=== PATIENT | female | born 1955 | race Caucasian/White ===

== ENCOUNTER 2020-11-06 01:38 | Inpatient (IN) ==
[2020-11-06] MEDS ORDERED: Naloxone 0.4 MG/ML INJ IVP PRN (01:50)
[2020-11-06] MEDS ORDERED: Ondansetron 4 MG/2 ML VIAL IVP PRN (01:50)
[2020-11-06] MEDS ORDERED: 0.9 % Sodium Chloride 1,000 ML IVC SCH (02:00)
[2020-11-06] MEDS ORDERED: D5% in Water 1,000 ML IVC PRN (02:26)
[2020-11-06] MEDS ORDERED: *HR* Dextrose 50 % in Water (Vial) 50 ML VIAL IVP PRN (02:26)
[2020-11-06] MEDS ORDERED: Dextrose Gel 15 GM/37.5 ML TUBE PO PRN ×2 (02:26)
[2020-11-06 02:52] LABS: INR 1.2; Prothrombin Time 14.1 Seconds (9.4-12.1)
[2020-11-06 03:15] LABS: Bilirubin,Urine Negative (Negative); Blood,Urine Negative (Negative); Clarity,Urine Clear (Clear); Color,Urine Light-Yellow (Yellow); Glucose,Urine (UA) Normal (Normal); Ketones,Urine Negative (Negative); Leukocyte Esterase,Urine Negative (Negative); Nitrite,Urine Negative (Negative); Protein,Urine Negative (Neg-Trace); Specific Gravity,Urine 1.015 (1.010-1.025); Urobilinogen,Urine Normal (Normal)
[2020-11-06 03:22] LABS: Alanine Aminotransferase 93 Units/L (7-52); Albumin 2.9 g/dL (3.5-5.7); Albumin/Globulin Ratio 1.2 (1.1-2.2); Alkaline Phosphatase 99 Units/L (34-104); Aspartate Amino Transferase 68 Units/L (13-39); BUN/Creatinine Ratio 38 (6-26); Bilirubin,Total 0.8 mg/dL (0.3-1.0); Blood Urea Nitrogen 25 mg/dL (8-23); Calcium 7.8 mg/dL (8.6-10.3); Carbon Dioxide 20 mEq/L (23-29); Chloride 111 mEq/L (98-107); Chol/HDL Ratio 2.4 (0-4.9); Cholesterol 111 mg/dL (< 200); Globulin 2.4 g/dL (2.4-3.5); Glucose 91 mg/dL (70-105); HDL Cholesterol 46 mg/dL (40-59); LDL Cholesterol,Calculated 43 mg/dL (< 100); Magnesium 1.3 mg/dL (1.6-2.6); Osmolality,Calculated 300 (280-300); Potassium 3.7 mEq/L (3.5-5.1); Sodium 143 mEq/L (136-145); Thyroid Stimulating Hormone 2.064 mcIU/mL (0.340-5.600); Total Protein 5.3 g/dL (6.4-8.9); Triglycerides 108 mg/dL (< 150); eGFR For African Americans > 60 (> 60); eGFR For Non-African Americans > 60 (> 60)
[2020-11-06 03:35] LABS: Basophils % 0.5 %; Eosinophils # 0.1 K/mcL (0.0-0.6); Eosinophils % 1.1 %; Hematocrit 28.3 % (35.3-44.9); Hemoglobin 8.6 g/dL (11.5-15.4); Immature Granulocytes % 0.2 % (0-4); Lymphocytes # 1.6 K/mcL (0.6-4.6); Lymphocytes % 27.9 %; Mean Corpuscular HGB Conc 30.4 g/dL (31.6-35.5); Mean Corpuscular Hemoglobin 36.8 pg (28.0-33.3); Mean Corpuscular Volume 120.9 fL (83.0-100.0); Mean Platelet Volume 9.2 fL (9.4-12.4); Monocytes # 0.6 K/mcL (0.0-1.3); Monocytes % 10.5 %; Neutrophils # 3.4 K/mcL (1.6-8.9); Platelet Count 141 K/mcL (140-400); Red Blood Count 2.34 M/mcL (3.82-4.97); Red Cell Distribution Width 15.2 % (11.5-14.5); Segmented Neutrophils % 59.8 %; White Blood Count 5.6 K/mcL (4.3-11.1)
[2020-11-06 04:24] LABS: Anisocytosis 1+ (Not Present); Platelet Estimate Normal (Normal)
[2020-11-06] MEDS: Insulin LISPRO 300 UNITS/3 ML VIAL SUBQ SCH ×3 (07:42→16:55)
[2020-11-06 08:54] LABS: Estimated Average Glucose 62 mg/dl; Hemoglobin A1C 3.8 %
[2020-11-06] MEDS ORDERED: Ketorolac 15 MG/ML VIAL IVP ONE (11:06)
[2020-11-06] MEDS ORDERED: Clindamycin 900 MG/50 ML 900 MG/50 ML IV.SOLN IVPB ONE (17:04)
[2020-11-06] MEDS ORDERED: *HR* Midazolam HCl 2 MG/2 ML VIAL ONE (17:09)
[2020-11-06] MEDS ORDERED: Lidocaine HCL 4 ML Topical Solution (Laryng-O-Jet Kit Sterile Pak) TP ONE (17:09)
[2020-11-06] MEDS ORDERED: Ondansetron 4 MG/2 ML VIAL ONE (17:09)
[2020-11-06] MEDS ORDERED: *HR* FentaNYL (PF) 100 MCG/2 ML VIAL ONE ×2 (17:09→18:08)
[2020-11-06] MEDS ORDERED: Lidocaine -MPF 2% 2 ML VIAL ONE (17:09)
[2020-11-06] MEDS ORDERED: *HR* Propofol 200 MG/20 ML VIAL IVP ONE (17:09)
[2020-11-06] MEDS ORDERED: Sugammadex Sodium 200 MG/2 ML VIAL IV ONE (18:12)
[2020-11-06] MEDS ORDERED: Acetaminophen IV 1,000 MG/100 ML BAG IVPB ONE (18:57)
[2020-11-06] MEDS ORDERED: *HR* OxyCODONE Immed Rel 5 MG TABLET PO PRN (18:57)
[2020-11-06] MEDS ORDERED: Famotidine 20 MG/2 ML VIAL IVP ONE (18:57)
[2020-11-06] MEDS ORDERED: *HR* HYDROmorphone 2 MG TABLET PO PRN (18:57)
[2020-11-06] MEDS ORDERED: *HR* Labetalol 20 MG/4 ML SYRINGE IVP PRN (18:57)
[2020-11-06] MEDS: *HR* HYDROmorphone (PF) 1 MG/ML SYRINGE IVP PRN ×2 (19:04→19:13)
[2020-11-06] MEDS: *HR* Heparin 5,000 UNIT/ML VIAL SQ SCH (20:28)
[2020-11-06] MEDS: Gabapentin 400 MG CAPSULE PO SCH (22:51)
[2020-11-07] MEDS: Clindamycin 900 MG/50 ML 900 MG/50 ML IV.SOLN IVPB SCH ×2 (00:12→09:45)
[2020-11-07] MEDS: *HR* Heparin 5,000 UNIT/ML VIAL SQ SCH ×2 (05:28→17:20)
[2020-11-07] MEDS ORDERED: Acetaminophen IV 1,000 MG/100 ML BAG IVPB ONE (05:57)
[2020-11-07 06:31] LABS: Basophils % 0.2 %; Hematocrit 27.3 % (35.3-44.9); Hemoglobin 8.5 g/dL (11.5-15.4); Immature Granulocytes % 0.2 % (0-4); Lymphocytes # 0.8 K/mcL (0.6-4.6); Lymphocytes % 18.1 %; Mean Corpuscular HGB Conc 31.1 g/dL (31.6-35.5); Mean Corpuscular Hemoglobin 37.6 pg (28.0-33.3); Mean Corpuscular Volume 120.8 fL (83.0-100.0); Mean Platelet Volume 9.7 fL (9.4-12.4); Monocytes # 0.4 K/mcL (0.0-1.3); Monocytes % 8.6 %; Neutrophils # 3.2 K/mcL (1.6-8.9); Platelet Count 163 K/mcL (140-400); Red Blood Count 2.26 M/mcL (3.82-4.97); Red Cell Distribution Width 14.3 % (11.5-14.5); Segmented Neutrophils % 72.9 %; White Blood Count 4.4 K/mcL (4.3-11.1)
[2020-11-07 06:50] LABS: BUN/Creatinine Ratio 31 (6-26); Blood Urea Nitrogen 16 mg/dL (8-23); Calcium 7.3 mg/dL (8.6-10.3); Carbon Dioxide 20 mEq/L (23-29); Chloride 113 mEq/L (98-107); Glucose 217 mg/dL (70-105); Magnesium 1.6 mg/dL (1.6-2.6); Osmolality,Calculated 300 (280-300); Phosphorous 2.8 mg/dL (2.7-4.5); Sodium 141 mEq/L (136-145); eGFR For African Americans > 60 (> 60); eGFR For Non-African Americans > 60 (> 60)
[2020-11-07 07:19] LABS: Anisocytosis 1+ (Not Present); Platelet Estimate Normal (Normal)
[2020-11-07] MEDS: Insulin LISPRO 300 UNITS/3 ML VIAL SUBQ SCH ×3 (08:34→16:12)
[2020-11-07] MEDS: Aspirin Enteric Coated 325 MG Tablet PO SCH (09:45)
[2020-11-07] MEDS: methocarbamoL 750 MG TABLET PO PRN ×2 (09:53→22:19)
[2020-11-07] MEDS: Gabapentin 100 MG CAPSULE PO SCH (16:07)
[2020-11-07] MEDS ORDERED: Furosemide 40 MG TABLET PO SCH (17:00)
[2020-11-07] MEDS: Gabapentin 400 MG CAPSULE PO SCH (22:19)
[2020-11-08 01:59] LABS: Basophils % 0.3 %; Eosinophils % 0.8 %; Hematocrit 23.2 % (35.3-44.9); Hemoglobin 7.1 g/dL (11.5-15.4); Immature Granulocytes % 0.3 % (0-4); Lymphocytes # 1.2 K/mcL (0.6-4.6); Lymphocytes % 32.1 %; Mean Corpuscular HGB Conc 30.6 g/dL (31.6-35.5); Mean Corpuscular Hemoglobin 36.8 pg (28.0-33.3); Mean Corpuscular Volume 120.2 fL (83.0-100.0); Mean Platelet Volume 9.2 fL (9.4-12.4); Monocytes # 0.4 K/mcL (0.0-1.3); Monocytes % 10.7 %; Neutrophils # 2.1 K/mcL (1.6-8.9); Platelet Count 132 K/mcL (140-400); Red Blood Count 1.93 M/mcL (3.82-4.97); Red Cell Distribution Width 13.8 % (11.5-14.5); Segmented Neutrophils % 55.8 %; White Blood Count 3.7 K/mcL (4.3-11.1)
[2020-11-08 02:19] LABS: BUN/Creatinine Ratio 27 (6-26); Blood Urea Nitrogen 16 mg/dL (8-23); Calcium 7.1 mg/dL (8.6-10.3); Carbon Dioxide 23 mEq/L (23-29); Chloride 112 mEq/L (98-107); Glucose 166 mg/dL (70-105); Magnesium 1.4 mg/dL (1.6-2.6); Osmolality,Calculated 299 (280-300); Phosphorous 2.4 mg/dL (2.7-4.5); Potassium 3.4 mEq/L (3.5-5.1); Sodium 142 mEq/L (136-145); eGFR For African Americans > 60 (> 60); eGFR For Non-African Americans > 60 (> 60)
[2020-11-08 03:03] LABS: Anisocytosis 1+ (Not Present); Platelet Estimate Normal (Normal)
[2020-11-08] MEDS: *HR* Heparin 5,000 UNIT/ML VIAL SQ SCH ×2 (05:52→16:38)
[2020-11-08] MEDS: Aspirin Enteric Coated 325 MG Tablet PO SCH (08:56)
[2020-11-08] MEDS: Cyanocobalamin (B-12) 1,000 MCG TABLET PO SCH (08:56)
[2020-11-08] MEDS: Insulin LISPRO 300 UNITS/3 ML VIAL SUBQ SCH ×3 (08:56→16:37)
[2020-11-08] MEDS: Gabapentin 100 MG CAPSULE PO SCH ×2 (08:57→15:38)
[2020-11-08] MEDS: Furosemide 20 MG TABLET PO SCH (08:57)
[2020-11-08] MEDS: Cholecalciferol (D-3) 1,000 UNIT (25MCG) TABLET PO SCH (08:57)
[2020-11-08] MEDS: methocarbamoL 750 MG TABLET PO PRN ×2 (09:06→21:11)
[2020-11-08] MEDS ORDERED: 0.9 % Sodium Chloride 250 ML IVC SCH (11:45)
[2020-11-08 20:33] LABS: Hemoglobin 8.6 g/dL (11.5-15.4)
[2020-11-08] MEDS: Gabapentin 400 MG CAPSULE PO SCH (21:11)
[2020-11-09] MEDS: Acetaminophen 325 MG TABLET PO PRN (04:26)
[2020-11-09] MEDS: *HR* Heparin 5,000 UNIT/ML VIAL SQ SCH (04:27)
[2020-11-09 05:31] LABS: Basophils % 0.3 %; Eosinophils # 0.1 K/mcL (0.0-0.6); Eosinophils % 1.6 %; Hematocrit 30.6 % (35.3-44.9); Hemoglobin 9.4 g/dL (11.5-15.4); Lymphocytes # 1.3 K/mcL (0.6-4.6); Lymphocytes % 41.5 %; Mean Corpuscular HGB Conc 30.7 g/dL (31.6-35.5); Mean Corpuscular Hemoglobin 35.6 pg (28.0-33.3); Mean Corpuscular Volume 115.9 fL (83.0-100.0); Mean Platelet Volume 9.3 fL (9.4-12.4); Monocytes # 0.3 K/mcL (0.0-1.3); Monocytes % 8.4 %; Neutrophils # 1.5 K/mcL (1.6-8.9); Platelet Count 128 K/mcL (140-400); Red Blood Count 2.64 M/mcL (3.82-4.97); Red Cell Distribution Width 18.6 % (11.5-14.5); Segmented Neutrophils % 48.2 %; White Blood Count 3.1 K/mcL (4.3-11.1)
[2020-11-09 05:40] LABS: Anisocytosis 1+ (Not Present); Platelet Estimate Slight Decrease (Normal)
[2020-11-09 05:43] LABS: BUN/Creatinine Ratio 27 (6-26); Blood Urea Nitrogen 12 mg/dL (8-23); Calcium 7.4 mg/dL (8.6-10.3); Carbon Dioxide 23 mEq/L (23-29); Chloride 114 mEq/L (98-107); Glucose 117 mg/dL (70-105); Magnesium 1.5 mg/dL (1.6-2.6); Osmolality,Calculated 295 (280-300); Phosphorous 2.8 mg/dL (2.7-4.5); Potassium 3.8 mEq/L (3.5-5.1); Sodium 142 mEq/L (136-145); eGFR For African Americans > 60 (> 60); eGFR For Non-African Americans > 60 (> 60)
[2020-11-09] MEDS: Cyanocobalamin (B-12) 1,000 MCG TABLET PO SCH (08:25)
[2020-11-09] MEDS: Cholecalciferol (D-3) 1,000 UNIT (25MCG) TABLET PO SCH (08:25)
[2020-11-09] MEDS: Aspirin Enteric Coated 325 MG Tablet PO SCH (08:25)
[2020-11-09] MEDS: Furosemide 20 MG TABLET PO SCH (08:25)
[2020-11-09] MEDS: Gabapentin 100 MG CAPSULE PO SCH ×2 (08:25→15:44)
[2020-11-09] MEDS: Insulin LISPRO 300 UNITS/3 ML VIAL SUBQ SCH ×3 (08:26→17:34)
[2020-11-09] MEDS: methocarbamoL 750 MG TABLET PO PRN (12:58)
[2020-11-09] MEDS: Gabapentin 400 MG CAPSULE PO SCH (21:00)
[2020-11-10] MEDS: Insulin LISPRO 300 UNITS/3 ML VIAL SUBQ SCH ×3 (08:37→17:52)
[2020-11-10] MEDS: Cyanocobalamin (B-12) 1,000 MCG TABLET PO SCH (08:42)
[2020-11-10] MEDS: Aspirin Enteric Coated 325 MG Tablet PO SCH (08:42)
[2020-11-10] MEDS: Cholecalciferol (D-3) 1,000 UNIT (25MCG) TABLET PO SCH (08:42)
[2020-11-10] MEDS: Furosemide 20 MG TABLET PO SCH (08:43)
[2020-11-10] MEDS: Gabapentin 100 MG CAPSULE PO SCH ×2 (08:43→13:25)
[2020-11-10] MEDS: Gabapentin 400 MG CAPSULE PO SCH (21:16)
[2020-11-11] MEDS: Insulin LISPRO 300 UNITS/3 ML VIAL SUBQ SCH ×3 (07:42→17:10)
[2020-11-11] MEDS: Aspirin Enteric Coated 325 MG Tablet PO SCH (09:18)
[2020-11-11] MEDS: Cyanocobalamin (B-12) 1,000 MCG TABLET PO SCH (09:18)
[2020-11-11] MEDS: Furosemide 20 MG TABLET PO SCH (09:18)
[2020-11-11] MEDS: Cholecalciferol (D-3) 1,000 UNIT (25MCG) TABLET PO SCH (09:18)
[2020-11-11] MEDS: Gabapentin 100 MG CAPSULE PO SCH ×2 (09:19→13:39)
[2020-11-11] MEDS: Ondansetron ODT 4 MG TAB.RAPDIS SL PRN (13:40)
[2020-11-11 18:51] LABS: Adenovirus F 40/41 PCR Not detected (Not detect); Astrovirus PCR Not detected (Not detect); C.difficile Toxin A/B Gene PCR Not detected (Not detect); Campylobacter by PCR Not detected (Not detect); Cryptosporidium by PCR Not detected (Not detect); Cyclospora cayetanensis PCR Not detected (Not detect); E. coli O157 by PCR Not detected (Not detect); Entamoeba histolytica PCR Not detected (Not detect); Enteroaggregative E.coli(EAEC) Not detected (Not detect); Enteropathogenic E.coli(EPEC) Not detected (Not detect); Enterotoxigenic E.coli (ETEC) Not detected (Not detect); Giardia lamblia PCR Not detected (Not detect); Norovirus GI/GII PCR Not detected (Not detect); Plesiomonas shigelloides PCR Not detected (Not detect); Rotavirus A PCR Not detected (Not detect); Salmonella PCR Not detected (Not detect); Sapovirus PCR Not detected (Not detect); Shig/EnteroinvasiveE coli EIEC Not detected (Not detect); Shigalike tox-prod E coli STEC Not detected (Not detect); Vibrio PCR Not detected (Not detect); Vibrio cholerae PCR Not detected (Not detect); Yersinia enterocolitica PCR Not detected (Not detect)
[2020-11-11] MEDS: Gabapentin 400 MG CAPSULE PO SCH (21:29)
[2020-11-11] MEDS: methocarbamoL 750 MG TABLET PO PRN (21:43)
[2020-11-12] MEDS ORDERED: *HR* Promethazine 25 MG/ML VIAL IM PRN (00:36)
[2020-11-12] MEDS: Ondansetron ODT 4 MG TAB.RAPDIS SL PRN (01:04)
[2020-11-12] MEDS: Acetaminophen 325 MG TABLET PO PRN (04:37)
[2020-11-12 07:37] LABS: Adenovirus Not Detected (Not Detect); Bordetella Pertussis Not Detected (Not Detect); Chlamydophila pneumoniae Not Detected (Not Detect); Coronavirus 229E Not Detected (Not Detect); Coronavirus HKU1 Not Detected (Not Detect); Coronavirus NL63 Not Detected (Not Detect); Coronavirus OC43 Not Detected (Not Detect); Human Metapneumovirus Not Detected (Not Detect); Human Rhinovirus/Enterovirus Not Detected (Not Detect); Influenza A Subtype 2009 H1 Not Detected (Not Detect); Influenza B Not Detected (Not Detect); Mycoplasma pneumoniae Not Detected (Not Detect); Parainfluenza Virus 1 Not Detected (Not Detect); Parainfluenza Virus 2 Not Detected (Not Detect); Parainfluenza Virus 3 Not Detected (Not Detect); Parainfluenza Virus 4 Not Detected (Not Detect); Respiratory Syncytial Virus Not Detected (Not Detect); SARS-CoV-2 Not Detected (Not Detect)
[2020-11-12] MEDS: Insulin LISPRO 300 UNITS/3 ML VIAL SUBQ SCH ×3 (08:32→18:10)
[2020-11-12] MEDS: Cyanocobalamin (B-12) 1,000 MCG TABLET PO SCH (08:53)
[2020-11-12] MEDS: Cholecalciferol (D-3) 1,000 UNIT (25MCG) TABLET PO SCH (08:53)
[2020-11-12] MEDS: Aspirin Enteric Coated 325 MG Tablet PO SCH (08:54)
[2020-11-12] MEDS: Gabapentin 100 MG CAPSULE PO SCH ×2 (08:54→18:09)
[2020-11-12] MEDS ORDERED: Furosemide 20 MG TABLET PO SCH (09:00)
[2020-11-12 10:12] LABS: Hematocrit 32.2 % (35.3-44.9)
[2020-11-12] MEDS ORDERED: Ondansetron 4 MG/2 ML VIAL IVP PRN (15:57)
[2020-11-12] MEDS: Gabapentin 400 MG CAPSULE PO SCH (20:58)
[2020-11-12] MEDS: methocarbamoL 750 MG TABLET PO PRN (21:52)
[2020-11-13] MEDS: Acetaminophen 325 MG TABLET PO PRN ×2 (06:07→12:27)
[2020-11-13] MEDS: Gabapentin 100 MG CAPSULE PO SCH ×2 (08:37→14:09)
[2020-11-13] MEDS: Aspirin Enteric Coated 325 MG Tablet PO SCH (08:37)
[2020-11-13] MEDS: Cyanocobalamin (B-12) 1,000 MCG TABLET PO SCH (08:37)
[2020-11-13] MEDS: Cholecalciferol (D-3) 1,000 UNIT (25MCG) TABLET PO SCH (08:38)
[2020-11-13] MEDS: Insulin LISPRO 300 UNITS/3 ML VIAL SUBQ SCH ×3 (08:38→16:47)
[2020-11-13] MEDS: Gabapentin 400 MG CAPSULE PO SCH (21:16)
[2020-11-13] MEDS: methocarbamoL 750 MG TABLET PO PRN (21:17)
[2020-11-14] MEDS ORDERED: Furosemide 40 MG TABLET PO SCH ×2 (08:00→09:00)
[2020-11-14] MEDS: Cholecalciferol (D-3) 1,000 UNIT (25MCG) TABLET PO SCH (09:56)
[2020-11-14] MEDS: Gabapentin 100 MG CAPSULE PO SCH (09:56)
[2020-11-14] MEDS: Aspirin Enteric Coated 325 MG Tablet PO SCH (09:56)
[2020-11-14] MEDS: Cyanocobalamin (B-12) 1,000 MCG TABLET PO SCH (09:57)
[2020-11-14 10:08] VITALS: BP 107/73
[2020-11-14 11:50] LABS: Adenovirus Not Detected (Not Detect); Bordetella Pertussis Not Detected (Not Detect); Coronavirus 229E Not Detected (Not Detect); Coronavirus HKU1 Not Detected (Not Detect); Coronavirus NL63 Not Detected (Not Detect); Coronavirus OC43 Not Detected (Not Detect); Human Metapneumovirus Not Detected (Not Detect); Human Rhinovirus/Enterovirus Not Detected (Not Detect); Influenza A Subtype 2009 H1 Not Detected (Not Detect); Influenza B Not Detected (Not Detect); Parainfluenza Virus 1 Not Detected (Not Detect); Parainfluenza Virus 2 Not Detected (Not Detect); Parainfluenza Virus 3 Not Detected (Not Detect); Parainfluenza Virus 4 Not Detected (Not Detect); Respiratory Syncytial Virus Not Detected (Not Detect); SARS-CoV-2 Not Detected (Not Detect)
[2020-11-14 11:51] LABS: Chlamydophila pneumoniae Not Detected (Not Detect); Mycoplasma pneumoniae Not Detected (Not Detect)
== END 2020-11-14 12:55 | disposition other institution (70) | DRG 481 ==
LOC: 3NENU → SUATTDRO 01:38
PROVIDERS: ADMIT Internal Medicine; ATTEND Internal Medicine